=== PATIENT | female | born 1970 | race Caucasian/White ===

== ENCOUNTER → 2016-10-19 | Outpatient (REF) | LOC: ZLAB.WCH 18:04 | DX: Z01.89 Encounter for other specified special examinations (principal) ==

== ENCOUNTER → 2016-11-29 | Outpatient (CLI) | payer BC | LOC: COL.RAD 11:44 | DX: M25.531 Pain in right wrist (principal) ==

== ENCOUNTER → 2017-01-25 | Outpatient (CLI) | payer BC | LOC: MC.RAD 10:33 | DX: Z12.31 Encounter for screening mammogram for malignant neoplasm of breast (principal) ==

== ENCOUNTER → 2018-06-13 | Outpatient (CLI) | payer BC | LOC: MC.RAD 09:59 | DX: Z12.31 Encounter for screening mammogram for malignant neoplasm of breast (principal) ==

== ENCOUNTER → 2019-10-30 | Outpatient (CLI) | payer BC | LOC: MC.RAD 10:11 | DX: Z12.31 Encounter for screening mammogram for malignant neoplasm of breast (principal) ==

== ENCOUNTER → 2020-11-18 | Outpatient (CLI) | payer BC | LOC: MC.RAD 10:00 | DX: Z12.31 Encounter for screening mammogram for malignant neoplasm of breast (principal) ==

== ENCOUNTER → 2022-04-20 | Outpatient (CLI) | payer BC | LOC: MC.RAD 09:37 | DX: Z12.31 Encounter for screening mammogram for malignant neoplasm of breast (principal) ==

== ENCOUNTER → 2023-08-23 | Outpatient (CLI) | payer BC | LOC: MC.RAD 09:18 | DX: Z12.31 Encounter for screening mammogram for malignant neoplasm of breast (principal) ==